=== PATIENT | female | born 1995 | race Caucasian/White ===

== ENCOUNTER → 2019-06-23 14:00 | Outpatient (BNVA) | payer OTHER, SELFPAY | PROVIDERS: Family Provider Nurse Practitioner; PCP Nurse Practitioner; Visit Provider Obstetrics & Gynecology | DX: Z12.4 Encounter for screening for malignant neoplasm of cervix (principal); Z01.419 Encounter for gynecological examination (general) (routine) without abnormal findings | CPT/HCPCS: 88175 ==

== ENCOUNTER 2020-05-03 08:01 | Outpatient (CLI) | payer SELFPAY ==
--- NOTE | 2020-05-03 08:06 | MM_ITS ---
WS: [id number] Right breast diagnostic digital mammogram, 05/03/2020 Clinical Data: RT BREAST LUMP UPPER OUTER QUADRANT Comparison: None. Findings: There is a marker on the skin of the upper outer quadrant of the right breast marking the site of the palpable nodule. No spiculated masses or clustered calcifications are seen. The breast parenchymal p attern shows fibroglandular tissue. MM/[place] [id number] Impression: 1. Negative right breast mammogram. 2. Right breast ultrasound was performed. BIRADS: 1-Negative FOLLOW UP: See Report The CAD checker stocker was used.
--- NOTE | 2020-05-03 08:06 | US_ITS ---
WS: [id number] Right breast ultrasound, 05/03/2020 Clinical Data: RT BREAST LUMP UPPER OUTER QUADRANT Comparison: None. Findings: The palpable thickening 1 cm from the nipple of the right breast shows no abnormalities. Only normal breast tissue is seen. There are no cysts or masses. US/US breast RT limited* [id number] Impression: Negative right breast ultrasound. Recommend clinical follow-up BIRADS: 1-Negative FOLLOW UP: See Report
== END 2020-05-03 08:02 | disposition home or self-care (01) ==
LOC: RADSHAW 08:04
PROVIDERS: PCP Internal Medicine; Visit Provider Internal Medicine
DX: N63.11 Unspecified lump in the right breast, upper outer quadrant (principal)
CPT/HCPCS: 76642; 77065

== ENCOUNTER 2022-04-27 11:47 | Outpatient (CLI) | payer OTHER, SELFPAY ==
--- NOTE | 2022-04-27 12:11 | US_ITS ---
WS: [id number] TRANSVAGINAL PELVIC ULTRASOUND HISTORY: PELVIC PAIN/ABD CRAMPS/DYSMENORRHEA COMPARISON: None available. Uterus: 10.1 cm x 5.9 cm x 3.8 cm. Mildly enlarged anteverted uterus. No fibroid or mass. Very subtle hypoechoic area along the lower posterior uterine segment measures 12 x 9 x 11 mm. Could be an area of developing fibroid. Endometrium: 1.1 cm. Normal, no increased vascularity or mass. Right ovary: 2.8 cm x 2.3 cm x 2.6 cm. Normal size and vascularity, no cystic or solid masses. Follic le measures 1.9 cm maximum. Left ovary: 2.8 cm x 2.3 cm x 2.6 cm. Normal size and vascularity, no cystic or solid masses. Small amount of free fluid. US/US transvaginal [id number] IMPRESSION: 1. Mildly enlarged uterus. Indeterminate for developing fibroid with a maximum diameter of 12 mm along the posterior lower uterine segment. 2. Normal endometrium. 3. No adnexal or ovarian mass.
== END 2022-04-27 11:48 | disposition home or self-care (01) ==
PROVIDERS: PCP Internal Medicine; Visit Provider Internal Medicine
DX: R10.2 Pelvic and perineal pain (principal); N94.6 Dysmenorrhea, unspecified
CPT/HCPCS: 76830

== ENCOUNTER 2023-02-14 15:53 | Outpatient (CLI) | payer OTHER, SELFPAY ==
--- NOTE | 2023-02-14 16:09 | MR_ITS ---
WS: [id number] MRI HEAD WITHOUT CONTRAST TECHNIQUE: Sagittal T1, T2 axial, T2 axial FLAIR, axial and coronal T1 images, axial susceptibility w eighted imaging, axial diffusion weighted images, and coronal T2 images were obtained. CLINICAL INFORMATION: MIGRAINE HEADACHE COMPARISON: None. FINDINGS: No evidence of restricted diffusion to suggest acute ischemia. Ventricular system and basilar cistern s are patent. Normal posterior fossa. Normal vascular flow voids at the skull base. No extra-axial fl uid collections. No evidence of mass or mass effect. Paranasal sinuses and mastoid air cells are well aerated. Trace mucosal thickening in the anterior ethmoid air cells. No hemosiderin on the susceptibly weighted images. Normal optic chiasm and pituitary infundibulum. Te mporal lobes and hippocampal formations are normal in appearance. No other suspicious findings. IMPRESSION: 1. No evidence of restricted diffusion to suggest acute ischemia. 2. No suspicious intracranial signal abnormalities. Normal quintanilla-white differentiation. 3. No hemosiderin on susceptibility-weighted images. 4. No other suspicious findings.
== END 2023-02-14 15:54 | disposition home or self-care (01) ==
LOC: RAD 15:54
PROVIDERS: PCP Internal Medicine; Visit Provider Internal Medicine
DX: G43.909 Migraine, unspecified, not intractable, without status migrainosus (principal)
CPT/HCPCS: 70551